=== PATIENT | female | born 1980 | race Caucasian/White ===

== ENCOUNTER 2017-08-23 18:58 | Inpatient (IN) ==
[2017-08-23] MEDS ORDERED: Haloperidol Inj 5 MG/ML Ampul ONE (19:11)
[2017-08-23] MEDS ORDERED: Haloperidol Inj 5 MG/ML Ampul IM ONE (19:20)
--- NOTE | 2017-08-23 21:03 | ED ---
HPI General Chief Complaint: Psychiatric Symptoms Stated Complaint: Eval/BA/DBPD Time Seen by Provider: 08/23/17 19:20 Source: patient Mode of arrival: other (BLAKE) Limitations: no limitations History of Present Illness HPI Narrative: 36-year-old female presents the ED under Ferro act for psychiatric evaluation. On my arrival to the room the patient is screaming help at the top of her lungs. She occasionally answers questions appropriately. She is unable to recall the events of today that led her to the ED. She denies suicidal ideation. I suspect that the patient is under the influence, however she denies any illicit drug use or alcohol use today. The patient is paranoid, states that we are "rubbing something on her skin that is absorbing." She is combative and in shackles and handcuffs. She is unable to provide any other meaningful history. Related Data Home Medications Medication Instructions Recorded Confirmed No Known Home Medications 08/21/17 08/21/17 Allergies Allergy/AdvReac Type Severity Reaction Status Date / Time *MDRO Multi-Drug Resistant AdvReac Unknown Uncoded 09/03/16 11:58 Organism Review of Systems ROS Unobtainable unobtainable due to mental status PMFSH Medical History Medical History Medical history unknown (Acute) Surgical History Surgical History No history of previous surgery (Acute) Social History Social History Substance History: Active Abuse Smoking Status: Current every day smoker Tobacco Type: Cigarettes How Often Do You Have a Drink Containing Alcohol: 4 or more times a week Exam Narrative Exam Narrative: GENERAL: Well-nourished, well-developed white female in no acute distress. SKIN: Focused skin assessment warm/dry. Multiple tattoos noted. HEAD: Normocephalic. EYES: No scleral icterus. No injection or drainage. NECK: Supple, trachea midline. No JVD or lymphadenopathy. CARDIOVASCULAR: Regular rate and rhythm without murmurs, gallops, or rubs. RESPIRATORY: Breath sounds clear and equal bilaterally. No accessory muscle use. GASTROINTESTINAL: Abdomen soft, non-tender, nondistended. MUSCULOSKELETAL: No cyanosis, or edema. Walks with a normal gait. BACK: Nontender without obvious deformity. No CVA tenderness. Medical Decision Making MDM Narrative Medical decision making narrative: 36-year-old female presents the ED under Ferro act for psychiatric evaluation. The patient is combative and defiant and paranoid. She is unable to provide any meaningful information. Patient was administered 5 mg of Haldol and 2 mg Ativan IM. Patient has a potassium level 2.9. I reviewed her record, this is chronic. She was administered 40 mEq KCl p.o. Patient's medically cleared for psychiatric evaluation. Differential Diagnosis Differential Diagnosis: Adjustment disorder versus anxiety versus bipolar versus depression versus dementia versus electrolyte disorder versus malingering versus mood disorder versus ODD versus psychosis versus PTSD versus schizophrenia versus schizoaffective disorder versus substance-induced mood disorder versus other Lab Data Result diagrams: 08/23/17 23:45 08/23/17 23:45 Lab Results 08/23/17 08/23/17 Range/Units 23:45 23:45 WBC 9.6 (4.0-11.0) th/mm3 RBC 4.74 (4.00-5.30) mil/mm3 Hgb 13.4 (11.6-15.3) gm/dL Hct 38.8 (35.0-46.0) % MCV 81.7 (80.0-100.0) fL MCH 28.2 (27.0-34.0) pg MCHC 34.5 (32.0-36.0) % RDW 13.6 (11.6-17.2) % Plt Count 227 (150-450) th/mm3 MPV 8.0 (7.0-11.0) fL Neut % (Auto) 65.7 (16.0-70.0) % Lymph % (Auto) 24.7 (9.0-44.0) % [place] % (Auto) 8.6 H (0.0-8.0) % Eos % (Auto) 0.4 (0.0-4.0) % Baso % (Auto) 0.6 (0.0-2.0) % Neut # (Auto) 6.3 (1.8-7.7) th/mm3 Lymph # (Auto) 2.4 (1.0-4.8) th/mm3 [place] # (Auto) 0.8 (0.0-0.9) th/mm3 Eos # (Auto) 0.0 (0.0-0.4) th/mm3 Baso # (Auto) 0.1 (0.0-0.2) th/mm3 WBC Differential . Differential Comment Auto diff final Sodium 141 (136-145) meq/L Potassium 2.9 L* (3.5-5.1) meq/L Chloride 107 (98-107) meq/L Carbon Dioxide 22.9 (21.0-32.0) meq/L Anion Gap 11 (5-15) meq/L BUN 13 (7-18) mg/dL Creatinine 0.70 (0.50-1.00) mg/dL Estimated GFR Greater than 89 (>89) mL/min Random Glucose 87 (74-106) mg/dL Calcium 8.6 (8.5-10.1) mg/dL Total Bilirubin 0.6 (0.2-1.0) mg/dL AST 23 (15-37) U/L ALT 22 (10-53) U/L Alkaline Phosphatase 45 (45-117) U/L Total Protein 7.5 (6.4-8.2) g/dL Albumin 3.6 (3.4-5.0) g/dL TSH 2.240 (0.358-3.740) uIU/mL Serum Alcohol Less than 3 (0-5) mg/dL Discharge Plan Discharge Disposition Patient Disposition: 30 Still Patient Discharge Details Discharge Problem: Medical clearance for psychiatric admission, Chronic hypokalemia Physicians Team ED Provider: Filipe Trujillo ED Midlevel Provider: Nanci Santos Primary Care Provider: UNKNOWN, Rxs /Orders / Referrals /Forms Prescriptions: No Action No Known Home Medications RF: 0 Status ED Status: Medically Cleared
[2017-08-24] LABS: Baso # (Auto) 0.1 th/mm3 (0.0-0.2); Baso % (Auto) 0.6 % (0.0-2.0); Eos % (Auto) 0.4 % (0.0-4.0); Hematocrit 38.8 % (35.0-46.0); Hemoglobin 13.4 gm/dL (11.6-15.3); Lymph # (Auto) 2.4 th/mm3 (1.0-4.8); Lymph % (Auto) 24.7 % (9.0-44.0); Mean Corpuscular HGB Conc 34.5 % (32.0-36.0); Mean Corpuscular Hemoglobin 28.2 pg (27.0-34.0); Mean Corpuscular Volume 81.7 fL (80.0-100.0); Mono # (Auto) 0.8 th/mm3 (0.0-0.9); Mono % (Auto) 8.6 % (0.0-8.0); Neut # (Auto) 6.3 th/mm3 (1.8-7.7); Neut % (Auto) 65.7 % (16.0-70.0); Platelet Count 227 th/mm3 (150-450); Red Blood Count 4.74 mil/mm3 (4.00-5.30); Red Cell Distribution Width 13.6 % (11.6-17.2); White Blood Count 9.6 th/mm3 (4.0-11.0)
[2017-08-24 00:30] LABS: Alanine Aminotransferase 22 U/L (10-53); Albumin 3.6 g/dL (3.4-5.0); Alkaline Phosphatase 45 U/L (45-117); Anion Gap 11 meq/L (5-15); Aspartate Aminotransferase 23 U/L (15-37); Blood Urea Nitrogen 13 mg/dL (7-18); Calcium 8.6 mg/dL (8.5-10.1); Carbon Dioxide 22.9 meq/L (21.0-32.0); Chloride 107 meq/L (98-107); Glomerular Filtration Rate Greater Than 89 mL/min (>89); Glucose,Random 87 mg/dL (74-106); Sodium 141 meq/L (136-145); Total Protein 7.5 g/dL (6.4-8.2)
[2017-08-24 00:32] LABS: Potassium 2.9 meq/L (3.5-5.1)
--- NOTE | 2017-08-24 16:01 | P.CONPSY ---
Provisional Diagnosis Admission Date: August 23, 2017 18:58 [place] I.: Substance-induced psychosis, polysubstance dependence including amphetamines, cocaine, opiates, cannabis History of Present Illness Service: ER Primary Care Provider: UNKNOWN History of Present Illness: The patient was seen this morning at 9:30 AM The patient is a 36-year-old woman, single, unemployed, homeless, with psychiatric history of polysubstance dependence including cannabis, cocaine , amphetamines, opiates, poor impulse control, aggressive behavior, extensive history of self cutting behavior, known by the service, no significant medical history, presents the ED under Ferro act for psychiatric evaluation. On my arrival to the room the patient is screaming help at the top of her lungs. She occasionally answers questions appropriately. She is unable to recall the events of today that led her to the ED. She denies suicidal ideation. I suspect that the patient is under the influence, however she denies any illicit drug use or alcohol use today. The patient is paranoid, states that we are "rubbing something on her skin that is absorbing." She is combative and in shackles and handcuffs. She is unable to provide any other meaningful history. Documentation was reviewed. Case discussed with ER staff. The patient was initially medicated with Haldol 5 mg, Ativan 2 mg IM in order to calm her down. On the psychiatric evaluation today the patient seems to be a little bit sedated, poorly cooperative, but she says that she prefers not to talk. She says that she is not being helped in this hospital and she just wanted to be discharged to go to use drugs again. When I asked her about suicidal ideation, the patient says that she prefers not to answer that question. Review of Systems Cardiovascular: Denies chest pain, Denies chest pain at rest, Denies chest pain with activity, Denies excessive sweating, Denies fainting, Denies fast heart rate, Denies foot swelling, Denies generalized swelling, Denies irregular heart rhythm, Denies leg pain with activity, Denies leg sores, Denies leg swelling, Denies lightheadedness, Denies radiating jaw, neck or arm pain, Denies rapid, pounding, or irregular heartbeat, Denies shortness of breath, Denies shortness of breath with activity, Denies shortness of breath when lying down, Denies shortness of breath causing sudden awakening, Denies slow heart rate, Denies other Gastrointestinal: Denies abdominal pain, Denies belching, Denies black, tarry stools, Denies bloating, Denies bright, red blood in stools, Denies change in bowel habits, Denies constant urge to pass stool, Denies change in stools, Denies coffee ground vomit, Denies constipation, Denies cramping, Denies difficulty swallowing, Denies excessive passing of gas, Denies feeling full early, Denies heartburn, Denies incontinent of stools, Denies loose stools, Denies nausea, Denies pain with swallowing, Denies vomiting, Denies vomiting blood, Denies other Genitourinary: Denies abnormal periods, Denies abnormal vaginal bleeding, Denies absent period, Denies bleeding between periods, Denies blood in urine, Denies difficulty starting urination, Denies difficulty urinating, Denies dribbling after urination, Denies frequent nighttime urination, Denies genital itching, Denies genital lesions, Denies heavy periods, Denies hot flashes, Denies light periods, Denies nipple discharge, Denies painful intercourse, Denies painful periods, Denies painful urination, Denies pelvic pain, Denies prolapse symptoms, Denies sexual problems, Denies side pain, Denies urinary incontinence, Denies urinary urgency, Denies vaginal discharge, Denies vaginal dryness, Denies vaginal odor, Denies vaginal itching, Denies other Skin/Breast: Denies acne, Denies bleeding lesions, Denies boil, Denies breast swelling, Denies breast skin changes, Denies breast pain, Denies breast lump, Denies change in breast shape, Denies change in hair, Denies change in skin color, Denies changing lesions, Denies dry skin, Denies excessive hair growth, Denies hair loss, Denies itching, Denies lesions, Denies nail changes, Denies new lesions, Denies nipple discharge, Denies non-healing lesions, Denies redness , Denies sensitivity to light, Denies rash, Denies skin pain, Denies skin ulcer , Denies sores, Denies stretch chambers, Denies unusual bruising, Denies wounds, Denies yellowing of the skin, Denies other Neurologic: Denies abnormal hearing, Denies abnormal movements, Denies abnormal speech, Denies abnormal walking, Denies behavioral changes, Denies burning sensations, Denies confusion, Denies dizziness, Denies fainting, Denies frequent falls, Denies headache(s), Denies lack of coordination, Denies localized weakness, Denies loss of vision, Denies memory loss, Denies numbness, Denies other visual disturbances, Denies radiating pain, Denies restless legs, Denies convulsions, Denies seizure-like activity, Denies sensory deficit, Denies tingling, Denies tingling/numbness/burning sensations, Denies tremor(s), Denies unsteadiness, Denies weakness, Denies other Psychiatric: Reports irritability, Denies abnormal sleep pattern, Denies anxiety , Denies behavioral changes, Denies change in appetite, Denies change in sex drive, Denies confusion, Denies depression, Denies difficulty concentrating, Denies hearing things others do not hear, Denies hopelessness, Denies lack of enjoyment, Denies memory loss, Denies mood swings, Denies panic attacks, Denies paranoia, Denies seeing things others do not see, Denies sensing things others do not sense, Denies tactile hallucinations, Denies thoughts of hurting/killing others, Denies thoughts of hurting/killing yourself, Denies other PMFSH - History History Provided By: Patient - Medical History Medical History: Medical History (Last Updated 08/21/17 @ 19:25 by Trinidad Carlos) Medical history unknown - Surgical History Surgical History: Surgical History (Last Updated 08/21/17 @ 19:25 by Trinidad Carlos) No history of previous surgery - Tobacco History Smoking Status: Current every day smoker Tobacco Type: Cigarettes - Alcohol History How Often Do You Have a Drink Containing Alcohol: 4 or more times a week - Substance Use History Substance History: Active Abuse - Substance Use Type Amphetamines Status: Active Route Used: By Mouth, Inhalation, Intravenously Reason for Use: Get High Medications and Allergies Active Medications: Active Medications Trimethoprim/Sulfamethoxazole (Bactrim Ds) 1 tab PO Q12HR OTILIA Allergies Allergy/AdvReac Type Severity Reaction Status Date / Time *MDRO Multi-Drug Resistant AdvReac Unknown Uncoded 09/03/16 11:58 Organism Mental Status Examination Appearance: Dirty, Disheveled, Other (Multiple tattoos) Orientation: x4 Motor Activity: Normal gait Speech: Slow, Incoherent Language: Adequate Fund of Knowledge: Adequate Attention and Concentration: Adequate Memory: Unremarkable Mood: Angry, Oppositional Thought Content: Appropriate Hallucination Type: None Delusion Type: None Suicidal Ideation: Yes Suicidal Plan: No Suicidal Intention: No Homicidal Ideation: No Homicidal Plan: No Homicidal Intention: No Insight: Poor Judgment: Poor Assessment and Plan - Assessment (1) Polysubstance dependence Code(s): F19.20 - Other psychoactive substance dependence, uncomplicated Status: Acute - Plan Plan: Estimated LOS: [] days On Psychiatric evaluation today the patient is quite irritable, oppositional, refusing to provide information for the psychiatric assessment, ambivalent about suicidal ideation. There is a patient with a extensive history of polysubstance dependence, poor impulse control, self cutting behavior, suicidal attempts, well known by the system. Patient is unable to contract for safety, and she has an elevated risk of danger to self, I will keep the patient on the Ferro act and was transferred the patient to [facility] for treatment of drug abuse and potential depression. Will order CIWA, also clonidine 0.2 mg every 8 hours as needed autonomic instability. Brief supportive psychotherapy provided. To be transferred to [facility]. Justification for Continued Inpatient Stay: Patient will be admitted in [facility].
[2017-08-25] MEDS ORDERED: Bisacodyl 10 MG Supp RECTAL PRN (08:33)
[2017-08-25] MEDS ORDERED: Aluminum/Magnesium/Simethacone Susp 30 ML UDC PO PRN (08:33)
--- NOTE | 2017-08-25 13:52 | P.HPPSY ---
Provisional Diagnosis Admission Date: August 25, 2017 08:35 [place] I.: Substance-induced psychosis, polysubstance dependence including amphetamines, cocaine, opiates, cannabis [place] II.: Unspecified personality disorder, strong cluster B traits Competence Certification of Person's Competence To Provide Express and Informed Consent I have personally examined Radha Murillo, a person being served at [facility] on, August 25, 2017 1347. Express and informed consent means consent voluntarily given in writing, by a competent person, after sufficient explanation and disclosure of the subject matter involved to enable the person to make a knowing and willful decision without any element of force, fraud, deceit, duress, or other form of constraint or coercion. This person is 18 years of age or older, is not now known to be incompetent to consent to treatment with a guardian advocate, and does not have a health care surrogate or proxy currently making medical treatment decisions. I have found this person to be one of the following: [] Competent to provide express and informed consent, as defined above, for voluntary admission to this facility and is competent to provide express and informed consent for treatment. He/she has the consistent capacity to make well reasoned, willful, and knowing decisions concerning his or her medical or mental health treatment. The person fully and consistently understands the purpose of the admission for examination/placement and is fully capable of personally exercising all rights assured [place] Incompetent to provide express and informed consent to voluntary admission, and this is incompetent to provide express and informed consent to treatment. The person must be transferred to involuntary status and a petition for a guardian advocate filed with the Circuit Court. [x] Refusing to provide express and informed consent to voluntary admission but is competent to provide express and informed consent for treatment. The person must be discharged or transferred to involuntary status. Form shall be completed within 24 hours of a person's arrival at the receiving facility and filed in the clinical record of each person: 1. Admitted on a voluntary basis 2. Permitted to provide express and informed consent to his/her own treatment 3. Allowed to transfer from involuntary to voluntary status 4. Prior to permitting a person to consent to his or her own treatment after having been previously found incompetent to consent to treatment. History of Present Illness Capacity: Has capacity History of Present Illness: 08/24/2017 The patient is a 36-year-old woman, single, unemployed, homeless, with psychiatric history of polysubstance dependence including cannabis, cocaine, amphetamines, opiates, poor impulse control, aggressive behavior, extensive history of self cutting behavior, known by the service, no significant medical history, presents the ED under Ferro act for psychiatric evaluation. On my arrival to the room the patient is screaming help at the top of her lungs. She occasionally answers questions appropriately. She is unable to recall the events of today that led her to the ED. She denies suicidal ideation. I suspect that the patient is under the influence, however she denies any illicit drug use or alcohol use today. The patient is paranoid, states that we are "rubbing something on her skin that is absorbing." She is combative and in shackles and handcuffs. She is unable to provide any other meaningful history. Documentation was reviewed. Case discussed with ER staff. The patient was initially medicated with Haldol 5 mg, Ativan 2 mg IM in order to calm her down. On the psychiatric evaluation today the patient seems to be a little bit sedated, poorly cooperative, but she says that she prefers not to talk. She says that she is not being helped in this hospital and she just wanted to be discharged to go to use drugs again. When I asked her about suicidal ideation, the patient says that she prefers not to answer that question. 08/24/2017 On Psychiatric evaluation today the patient is quite irritable, oppositional, refusing to provide information for the psychiatric assessment, ambivalent about suicidal ideation. There is a patient with a extensive history of polysubstance dependence, poor impulse control, self-cutting behavior , suicidal attempts, well known by the system. Patient is unable to contract for safety, and she has an elevated risk of danger to self, I will keep the patient on the Ferro act and was transferred the patient to [facility] for treatment of drug abuse and potential depression. Will order CIWA, also clonidine 0.2 mg every 8 hours as needed autonomic instability. Brief supportive psychotherapy provided. To be transferred to [facility]. 08/25/2017 the patient was seen today for psychiatric reevaluation. The patient continues to be quite irritable, very oppositional, and stating that she wants to . In longitudinal observation the patient has been isolated, barely getting out of her room, poorly communicative and internally preoccupied - Inpatient Certification I certify that the inpatient services were ordered in accordance with Medicare regulations governing the order. This includes certification that hospital inpatient services are reasonable and necessary and in the case of services not specified as inpatient-only under 42 CFR 419.22(n), that they are appropriately provided as inpatient services in accordance to with the 2-midnight benchmark under 43 CFR 412.3(e) I certify that inpatient psychiatric hospital services are medically necessary. Evaluation and treatment and/or diagnostic testing are expected to improve the patient's condition. The patient needs on a daily basis, active treatment furnished directly by or requiring the supervision of inpatient psychiatric facility personnel. Estimated Total Length of Stay (Days): 5 Plans for Post Hospital Care: Home Review of Systems Constitutional: Denies anorexia, Denies body ache(s), Denies chills, Denies daytime sleepiness, Denies excessive sweating, Denies fatigue, Denies fever(s), Denies headache(s), Denies increased appetite, Denies lack of energy, Denies malaise, Denies night sweats, Denies weakness, Denies weight gain, Denies weight loss, Denies other Cardiovascular: Denies chest pain, Denies chest pain at rest, Denies chest pain with activity, Denies excessive sweating, Denies fainting, Denies fast heart rate, Denies foot swelling, Denies generalized swelling, Denies irregular heart rhythm, Denies leg pain with activity, Denies leg sores, Denies leg swelling, Denies lightheadedness, Denies radiating jaw, neck or arm pain, Denies rapid, pounding, or irregular heartbeat, Denies shortness of breath, Denies shortness of breath with activity, Denies shortness of breath when lying down, Denies shortness of breath causing sudden awakening, Denies slow heart rate, Denies other Respiratory: Denies change in phlegm color, Denies chest congestion, Denies cough, Denies coughing up blood, Denies excessive phlegm production, Denies pain on inspiration, Denies pain with cough, Denies shortness of breath, Denies shortness of breath with activity, Denies snoring, Denies stridor, Denies wheezing, Denies other Gastrointestinal: Denies abdominal pain, Denies belching, Denies black, tarry stools, Denies bloating, Denies bright, red blood in stools, Denies change in bowel habits, Denies constant urge to pass stool, Denies change in stools, Denies coffee ground vomit, Denies constipation, Denies cramping, Denies difficulty swallowing, Denies excessive passing of gas, Denies feeling full early, Denies heartburn, Denies incontinent of stools, Denies loose stools, Denies nausea, Denies pain with swallowing, Denies vomiting, Denies vomiting blood, Denies other Genitourinary: Denies abnormal periods, Denies abnormal vaginal bleeding, Denies absent period, Denies bleeding between periods, Denies blood in urine, Denies difficulty starting urination, Denies difficulty urinating, Denies dribbling after urination, Denies frequent nighttime urination, Denies genital itching, Denies genital lesions, Denies heavy periods, Denies hot flashes, Denies light periods, Denies nipple discharge, Denies painful intercourse, Denies painful periods, Denies painful urination, Denies pelvic pain, Denies prolapse symptoms, Denies sexual problems, Denies side pain, Denies urinary incontinence, Denies urinary urgency, Denies vaginal discharge, Denies vaginal dryness, Denies vaginal odor, Denies vaginal itching, Denies other Musculoskeletal: Denies abnormal walking, Denies back pain, Denies body aches, Denies decreased muscle mass, Denies deformity, Denies joint pain, Denies joint swelling, Denies limited joint movement, Denies loss of height, Denies muscle cramps, Denies muscle weakness, Denies neck pain, Denies numbness, Denies radiating pain into limb, Denies stiffness, Denies tingling, Denies other Psychiatric: Reports behavioral changes, Reports thoughts of hurting/killing yourself, Denies abnormal sleep pattern, Denies anxiety, Denies change in appetite, Denies change in sex drive, Denies confusion, Denies depression, Denies difficulty concentrating, Denies hearing things others do not hear, Denies hopelessness, Denies irritability, Denies lack of enjoyment, Denies memory loss, Denies mood swings, Denies panic attacks, Denies paranoia, Denies seeing things others do not see, Denies sensing things others do not sense, Denies tactile hallucinations, Denies thoughts of hurting/killing others, Denies other PMFSH - History History Provided By: Patient - Medical History Medical History: Medical History (Last Updated 08/21/17 @ 19:25 by Trinidad Carlos) Medical history unknown - Surgical History Surgical History: Surgical History (Last Updated 08/21/17 @ 19:25 by Trinidad Carlos) No history of previous surgery - Tobacco History Smoking Status: Current every day smoker Tobacco Type: Cigarettes - Alcohol History How Often Do You Have a Drink Containing Alcohol: 4 or more times a week - Substance Use History Substance History: Active Abuse - Substance Use Type Amphetamines Status: Active Route Used: By Mouth, Inhalation, Intravenously Reason for Use: Get High Medications and Allergies Active Medications: Active Medications Al Hydrox/Mg Hydrox/Simethicone (Mag-Al Plus Susp Liq) 30 ml PO Q6H PRN PRN Reason: DYSPEPSIA Al Hydroxide/Mg Hydroxide (Milk Of Magnesia Liq) 30 ml PO Q12H PRN PRN Reason: Mild Constipation Bisacodyl (Dulcolax Supp) 10 mg RECTAL DAILY PRN PRN Reason: SEVERE CONSITIPATION Lactulose (Lactulose Liq) 30 ml PO DAILY PRN PRN Reason: SEVERE CONSITIPATION Senna/Docusate Sodium (Annika-Colace) 1 tab PO BID [facility] Sennosides (Senokot) 17.2 mg PO Q12H PRN PRN Reason: Moderate Constipation Trimethoprim/Sulfamethoxazole (Bactrim Ds) 1 tab PO Q12HR [facility] Allergies Allergy/AdvReac Type Severity Reaction Status Date / Time *MDRO Multi-Drug Resistant AdvReac Unknown Uncoded 09/03/16 11:58 Organism Results - Labs CBC & Chem 7: 08/23/17 23:45 08/23/17 23:45 Exam Vital signs: Vital Signs 08/24/17 18:00 08/24/17 23:04 08/25/17 06:39 Pulse Rate 80 74 Respiratory Rate 16 18 Blood Pressure 123/72 99/93 H Pulse Oximetry 98 99 Narrative: No withdrawal symptoms, no EPS, no psychomotor agitation retardation, no gait disturbance Mental Status Examination Appearance: Dirty, Disheveled, Other (Multiple tattoos) Orientation: x4 Motor Activity: Normal gait Speech: Slow, Incoherent Language: Adequate Fund of Knowledge: Adequate Attention and Concentration: Adequate Memory: Unremarkable Mood: Angry, Oppositional Thought Content: Appropriate Hallucination Type: None Delusion Type: None Suicidal Ideation: Yes Suicidal Plan: No Suicidal Intention: No Homicidal Ideation: No Homicidal Plan: No Homicidal Intention: No Insight: Poor Judgment: Poor Assessment and Plan - Assessment (1) Polysubstance dependence Code(s): F19.20 - Other psychoactive substance dependence, uncomplicated Status: Acute - Plan Plan: Estimated LOS: [] days On Psychiatric reevaluation today after 24 hours ready in the ER the patient continues to be irritable, oppositional, refusing to provide much information for the psychiatric assessment, seems to be guarded and internally preoccupied, ambivalent about suicidal ideation. There is a patient with a extensive history of polysubstance dependence, poor impulse control, self cutting behavior , suicidal attempts, well known by the system. Patient is unable to contract for safety, and she has an elevated risk of danger to self. She was in the [facility] list, but unfortunately has not been accepted, she needs to be admitted in psychiatry for safety and stabilization. Will order CIWA, also clonidine 0.2 mg every 8 hours as needed autonomic instability. We will start Seroquel 25 mg twice daily. Brief supportive psychotherapy provided. To be transferred to 2700 unit. Justification for Continued Inpatient Stay: Needs psychiatric admission
[2017-08-25] MEDS: Senna/Docusate Sodium 8.6/50 MG Tablet PO SCH ×2 (15:07→21:22)
[2017-08-25] MEDS ORDERED: QUEtiapine 100 MG Tablet PO ONE ×2 (21:15)
[2017-08-26] MEDS: Senna/Docusate Sodium 8.6/50 MG Tablet PO SCH ×2 (09:33→20:44)
--- NOTE | 2017-08-26 16:56 | P.CONPSY ---
Provisional Diagnosis Admission Date: August 25, 2017 08:35 [place] I.: Substance-induced psychosis, polysubstance dependence including amphetamines, cocaine, opiates, cannabis [place] II.: Unspecified personality disorder, strong cluster B traits History of Present Illness Service: Psychiatry Consult date: 08/26/17 Requesting Physician: Ignacio Duran Reason for Consult: Second opinion Primary Care Provider: UNKNOWN History of Present Illness: he patient is a 36-year-old woman, single, unemployed, homeless, with psychiatric history of polysubstance dependence including cannabis, cocaine, amphetamines, opiates, poor impulse control, aggressive behavior, extensive history of self cutting behavior, known by the service, no significant medical history, presents the ED under Ferro act for psychiatric evaluation. As per chart patient had required ETO due to agitation and paranoia in the ED and was given Haldol 5 mg IM and Ativan 2 mg IM 1. Discussion nursing staff reported the patient has been superficially cooperative, irritable. Patient was found lying hospital bed superficially cooperative with poor eye contact and interviewed with nursing counselors. Patient states that her problem is being here in the hospital, that her stressors primarily revolve around her drug use and homelessness patient denies any difficulty with sleep appetite energy or concentration, denying feeling depressed although her affect appeared to be irritable. Patient denies any perceptual service of delusions with denying any although noted to be paranoid during interview. Patient denies any history of suicide attempt or self-injurious behavior but with limited elaboration on previous hospitalizations diagnoses or treatments. Patient mentions that she is on probation for possession of a firearm charge and will continue to be on probation until October of this year. Patient denies any medical history or allergies to medications. Patient is a poor historian due to reluctance to engage in adequate interview as well as unreliable to contract for safety at this time. [facility] - History History Provided By: Patient - Medical History Medical History: Medical History (Last Updated 08/21/17 @ 19:25 by Trinidad Carlos) Medical history unknown - Surgical History Surgical History: Surgical History (Last Updated 08/21/17 @ 19:25 by Trinidad Carlos) No history of previous surgery - Tobacco History Second Hand Smoke Exposure: Yes Smoking Status: Refused to answer Tobacco Type: Cigarettes - Alcohol History How Often Do You Have a Drink Containing Alcohol: 4 or more times a week - Substance Use History Substance History: Active Abuse - Substance Use Type Amphetamines Status: Active Route Used: By Mouth Reason for Use: Calm Down, Feels Good Comment: Patient reports that she is addicted to "drugs" but would not elaborate. Patient denies any history of treatment for alcohol or substance abuse. - Travel History Recent Travel in the [place] Within the Last 8 Weeks: No Recent Travel Out of the Country Within the Last 8 Weeks: No - Immunization History Tetanus Immunization: >5 Years Hx Influenza Vaccine This Season: No Medications and Allergies Active Medications: Active Medications Al Hydrox/Mg Hydrox/Simethicone (Mag-Al Plus Susp Liq) 30 ml PO Q6H PRN PRN Reason: DYSPEPSIA Al Hydroxide/Mg Hydroxide (Milk Of Magnesia Liq) 30 ml PO Q12H PRN PRN Reason: Mild Constipation Bisacodyl (Dulcolax Supp) 10 mg RECTAL DAILY PRN PRN Reason: SEVERE CONSITIPATION Lactulose (Lactulose Liq) 30 ml PO DAILY PRN PRN Reason: SEVERE CONSITIPATION Senna/Docusate Sodium (Annika-Colace) 1 tab PO BID [facility] Last Admin: 08/26/17 09:33 Dose: 1 tab Sennosides (Senokot) 17.2 mg PO Q12H PRN PRN Reason: Moderate Constipation Trimethoprim/Sulfamethoxazole (Bactrim Ds) 1 tab PO Q12HR [facility] Last Admin: 08/26/17 09:33 Dose: 1 tab Allergies Allergy/AdvReac Type Severity Reaction Status Date / Time *MDRO Multi-Drug Resistant AdvReac Unknown Uncoded 09/03/16 11:58 Organism Exam Vital signs: Vital Signs 08/26/17 05:56 08/26/17 15:56 Temperature 98.4 F 102.6 F H Pulse Rate 86 96 H Respiratory Rate 16 18 Blood Pressure 102/61 113/71 Pulse Oximetry 98 97 Intake & Output 08/25/17 08/26/17 08/26/17 18:59 06:59 18:59 Weight 65.6 kg Other: Weight On Admission 65.6 kg Mental Status Examination Appearance: Dirty, Disheveled, Other (Multiple tattoos) Consciousness: Alert Orientation: x4 Motor Activity: Normal gait Speech: Slow, Incoherent Language: Adequate Fund of Knowledge: Adequate Attention and Concentration: Adequate Memory: Unremarkable Mood: Oppositional, Irritable Affect: Other (Guarded) Thought Process & Associations: Linear Thought Content: Appropriate Hallucination Type: None Delusion Type: None, Paranoid Suicidal Ideation: Yes (Denies been unreliable to contract for safety) Suicidal Plan: No Suicidal Intention: No Homicidal Ideation: No Homicidal Plan: No Homicidal Intention: No Insight: Poor Judgment: Poor Assessment and Plan - Assessment (1) Polysubstance dependence Code(s): F19.20 - Other psychoactive substance dependence, uncomplicated Status: Acute - Plan Plan: I have seen and examined this patient, reviewed the documentation, discussed personally with Dr. Duran, and I agree and concur with his assessment and plan. Consult appreciated. Justification for Continued Inpatient Stay: At risk of further decompensation a lower level care. Discharge Planning: To be determined
[2017-08-26] MEDS: LORazepam 1 MG Tablet PO PRN (20:44)
[2017-08-26] MEDS ORDERED: QUEtiapine 100 MG Tablet PO SCH (21:00)
[2017-08-27] MEDS: LORazepam 1 MG Tablet PO PRN ×3 (08:45→21:51)
[2017-08-27] MEDS: Ibuprofen 600 MG Tablet PO PRN ×2 (08:45→20:30)
[2017-08-27] MEDS: Senna/Docusate Sodium 8.6/50 MG Tablet PO SCH ×2 (08:46→20:28)
[2017-08-27 11:46] LABS: Calcium 8.7 mg/dL (8.5-10.1); Carbon Dioxide 24.1 meq/L (21.0-32.0); Potassium 3.5 meq/L (3.5-5.1)
[2017-08-27 11:51] LABS: Chol/HDL Ratio 2.44 Ratio; HDL Cholesterol 40.1 mg/dL (40.0-60.0)
--- NOTE | 2017-08-27 16:50 | P.PNPSY ---
Subjective Remarks: She is seen for follow-up, chart reviewed. Discussion nursing staff reported the patient noted to be somewhat irritable and angry this morning, continues on treatment for UTI. Patient was found lying hospital bed noted to be superficially cooperative, somnolent and minimally engaging interview today. Patient states that she is feeling "okay" with any of elaborate about feeling depressed nor whether she was continuing to having suicidal ideations. Patient was encouraged to maintain adequate fluid intake and to maintain adherence to treatment which she can simply nodded her head continue to close her eyes and refused to continue interview. Review of Systems All other systems reviewed negative except as stated in HPI Mental Status Examination Appearance: Appropriate, Other (Multiple tattoos) Consciousness: Alert Orientation: x4 Motor Activity: Normal gait Speech: Slow, Incoherent Language: Adequate Fund of Knowledge: Adequate Attention and Concentration: Adequate Memory: Unremarkable Mood: Other ("Tired") Affect: Other (Guarded) Thought Process & Associations: Linear Thought Content: Appropriate Hallucination Type: None Delusion Type: None, Paranoid Suicidal Ideation: Yes (Denies been unreliable to contract for safety) Suicidal Plan: No Suicidal Intention: No Homicidal Ideation: No Homicidal Plan: No Homicidal Intention: No Insight: Poor Judgment: Poor Assessment and Plan - Assessment (1) Polysubstance dependence Code(s): F19.20 - Other psychoactive substance dependence, uncomplicated Status: Acute - Plan Plan: Patient this time continues with limited cooperation during interview, irritability noted still. We will continue to titrate quetiapine for mood stabilization to 150 mg p.o. at bedtime, continue rest of medications. Continue to monitor mood and behavior. Discharge planning in progress. Justification for Continued Inpatient Stay: At risk for further decompensation if at lower level of care
[2017-08-27] MEDS ORDERED: QUEtiapine 100 MG Tablet PO SCH (21:00)
[2017-08-28] MEDS: LORazepam 1 MG Tablet PO PRN ×2 (10:11→15:39)
[2017-08-28] MEDS: Senna/Docusate Sodium 8.6/50 MG Tablet PO SCH ×2 (11:15→20:20)
--- NOTE | 2017-08-28 12:33 | P.PNPSY ---
Subjective Remarks: Patient seen for follow-up, chart reviewed. Discussion nursing staff reported the patient irritable and agitated this morning but redirectable along with feeling very paranoid with medications and refused labs today. Patient was found ambulating on the [place] noted to be somewhat disoriented but also irritable and labile. Patient asks why she is still in the hospital and noted be very tearful stated that she did not know what to do. Patient also mentions having foul-smelling her urine was reminded that she is currently being treated for UTI and encouraged to maintain adequate hydration. Patient preservative on discharge plan stating that she fears of going back out into the streets but is amenable to engaging in sober living facility for rehabilitation. Review of Systems All other systems reviewed negative except as stated in HPI Mental Status Examination Appearance: Appropriate, Other (Multiple tattoos) Consciousness: Alert Orientation: x4 Motor Activity: Normal gait Speech: Unremarkable Language: Adequate Fund of Knowledge: Adequate Attention and Concentration: Adequate Memory: Unremarkable Mood: Anxious, Irritable Affect: Labile, Other (Crying at times) Thought Process & Associations: Disorganized (At times), Linear Thought Content: Appropriate Hallucination Type: None Delusion Type: Paranoid Suicidal Ideation: Yes (Denies been unreliable to contract for safety) Suicidal Plan: No Suicidal Intention: No Homicidal Ideation: No Homicidal Plan: No Homicidal Intention: No Insight: Poor Judgment: Poor Assessment and Plan - Assessment (1) Polysubstance dependence Code(s): F19.20 - Other psychoactive substance dependence, uncomplicated Status: Acute - Plan Plan: Patient this time continues with labile mood, irritability. We will continue titration of quetiapine to 200 mg p.o. at bedtime, continue rest of medications and recommendations as per prior medical team. Continue to encourage patient to maintain adequate fluid intake and nutritional intake as well as participating groups and activities and maintain personal hygiene. Continue to monitor mood and behavior. Discharge planning a progress. Justification for Continued Inpatient Stay: At risk of further decompensation a lower level of care.
--- NOTE | 2017-08-29 08:27 | ECG ---
Date Performed: 08/28/2017 Time Performed: 13:14:31 PTAGE: 36 years EKG: Sinus rhythm NORMAL ECG PREVIOUS TRACING : 09/03/2016 14.35 DOCTOR: Miguel Angel Hernandez Interpretating Date/Time 08/29/2017 08:22:17
[2017-08-29] MEDS: Senna/Docusate Sodium 8.6/50 MG Tablet PO SCH ×2 (13:13→20:00)
--- NOTE | 2017-08-29 14:16 | P.PNPSY ---
Subjective Remarks: Patient was seen and case discussed with nursing. Per nursing, patient was tearful and paranoid last night. During this interview there is poverty of speech and some thought blocking. She is flat and hypoverbal. She appears confused with the interview in her surroundings. Insight is quite poor. Compliant with medications and no outbursts Mental Status Examination Appearance: Appropriate, Other (Multiple tattoos) Consciousness: Alert Orientation: x4 Motor Activity: Normal gait Speech: Unremarkable Language: Adequate Fund of Knowledge: Adequate Attention and Concentration: Adequate Memory: Unremarkable Mood: Anxious, Irritable Affect: Flat, Other (Crying at times) Thought Process & Associations: Disorganized (At times), Linear Thought Content: Thought blocking Hallucination Type: None Delusion Type: Paranoid Suicidal Ideation: Yes (Denies been unreliable to contract for safety) Suicidal Plan: No Suicidal Intention: No Homicidal Ideation: No Homicidal Plan: No Homicidal Intention: No Insight: Poor Judgment: Poor Assessment and Plan - Assessment (1) Polysubstance dependence Code(s): F19.20 - Other psychoactive substance dependence, uncomplicated Status: Acute - Plan Plan: Continue current treatment plan Justification for Continued Inpatient Stay: Patient would decompensate in a less restrictive setting
[2017-08-29] MEDS: LORazepam 1 MG Tablet PO PRN (17:49)
[2017-08-30] MEDS: Senna/Docusate Sodium 8.6/50 MG Tablet PO SCH ×2 (08:49→21:45)
[2017-08-30] MEDS: LORazepam 1 MG Tablet PO PRN (12:09)
[2017-08-30] MEDS ORDERED: Haloperidol Inj 5 MG/ML Ampul ONE (13:44)
[2017-08-30] MEDS ORDERED: Haloperidol Inj 5 MG/ML Ampul IM ONE (13:45)
--- NOTE | 2017-08-30 15:44 | P.PNPSY ---
Subjective Remarks: Patient was seen and case discussed with nursing. For this visit, patient is quite somnolent after her ETO of Haldol. Earlier in the day she was irritable and cursing at another patient and subsequently threw a chair. Mental Status Examination Appearance: Appropriate, Other (Multiple tattoos) Consciousness: Somnolent Orientation: x4 Motor Activity: Normal gait Speech: Unremarkable Language: Adequate Fund of Knowledge: Adequate Attention and Concentration: Adequate Memory: Unremarkable Mood: Anxious, Irritable Affect: Flat, Other (Crying at times) Thought Process & Associations: Disorganized (At times), Linear Thought Content: Thought blocking Hallucination Type: None Delusion Type: Paranoid Suicidal Ideation: Yes (Denies been unreliable to contract for safety) Suicidal Plan: No Suicidal Intention: No Homicidal Ideation: No Homicidal Plan: No Homicidal Intention: No Insight: Poor Judgment: Poor Assessment and Plan - Assessment (1) Polysubstance dependence Code(s): F19.20 - Other psychoactive substance dependence, uncomplicated Status: Acute - Plan Plan: Continue current treatment plan Justification for Continued Inpatient Stay: Patient would decompensate in a less restrictive setting
[2017-08-31] MEDS: LORazepam 1 MG Tablet PO PRN (11:11)
[2017-08-31] MEDS ORDERED: QUEtiapine 100 MG Tablet PO SCH (14:25)
--- NOTE | 2017-08-31 17:55 | P.PNPSY ---
Subjective Remarks: Patient seen for follow-up, chart reviewed. Discussion with nursing staff reported that the patient had labile mood over the weekend which she required ETO, continues to be anxious. Patient was found ambulating on the unit, noted to be anxious about discharge plan, noted with poverty of thought, and having difficulty with decision making as she is noted to be overwhelmed. Patient states that she would like referral to treatment program but then appears unsure. She states feeling confused at times. She denies any AVH, denies any SI or delusions. Review of Systems All other systems reviewed negative except as stated in HPI Mental Status Examination Appearance: Appropriate, Other (Multiple tattoos) Consciousness: Somnolent Orientation: x4 Motor Activity: Normal gait Speech: Unremarkable Language: Adequate Fund of Knowledge: Adequate Attention and Concentration: Adequate Memory: Unremarkable Mood: Anxious, Irritable Affect: Labile Thought Process & Associations: Disorganized (At times), Other (some poverty of thought) Thought Content: Thought blocking, Preoccupations (with discharge plan) Hallucination Type: None Delusion Type: Paranoid Suicidal Ideation: No Suicidal Plan: No Suicidal Intention: No Homicidal Ideation: No Homicidal Plan: No Homicidal Intention: No Insight: Poor Judgment: Poor Assessment and Plan - Assessment (1) Polysubstance dependence Code(s): F19.20 - Other psychoactive substance dependence, uncomplicated Status: Acute - Plan Plan: Patient continues with confusion at times, difficulty with organization of thoughts, and with labile mood but lessening. Will increase quetiapine to 250mg PO HS for mood stabilization. Will continue to monitor mood and behavior. Discharge planning in progress. Justification for Continued Inpatient Stay: At risk for further decompensation at lower level of care.
[2017-08-31] MEDS: Senna/Docusate Sodium 8.6/50 MG Tablet PO SCH (21:40)
[2017-09-01] MEDS: Senna/Docusate Sodium 8.6/50 MG Tablet PO SCH (08:38)
--- NOTE | 2017-09-01 08:41 | P.DSPSY ---
Psychiatry Discharge Summary Inpatient Psychiatric care?: Yes Advance Directives: Yes Mental Health Advance Directive: No Health Care Proxy: No - Admission Admission Date: August 25, 2017 08:35 - Admission Diagnosis (1) Substance induced mood disorder Code(s): F19.94 - Other psychoactive substance use, unspecified with psychoactive substance-induced mood disorder (2) Polysubstance dependence Code(s): F19.20 - Other psychoactive substance dependence, uncomplicated Brief History: 08/24/2017 The patient is a 36-year-old woman, single, unemployed, homeless, with psychiatric history of polysubstance dependence including cannabis, cocaine, amphetamines, opiates, poor impulse control, aggressive behavior, extensive history of self cutting behavior, known by the service, no significant medical history, presents the ED under [facility] act for psychiatric evaluation. On my arrival to the room the patient is screaming help at the top of her lungs. She occasionally answers questions appropriately. She is unable to recall the events of today that led her to the ED. She denies suicidal ideation. I suspect that the patient is under the influence, however she denies any illicit drug use or alcohol use today. The patient is paranoid, states that we are "rubbing something on her skin that is absorbing." She is combative and in shackles and handcuffs. She is unable to provide any other meaningful history. Documentation was reviewed. Case discussed with ER staff. The patient was initially medicated with Haldol 5 mg, Ativan 2 mg IM in order to calm her down. On the psychiatric evaluation today the patient seems to be a little bit sedated, poorly cooperative, but she says that she prefers not to talk. She says that she is not being helped in this hospital and she just wanted to be discharged to go to use drugs again. When I asked her about suicidal ideation, the patient says that she prefers not to answer that question. 08/24/2017 On Psychiatric evaluation today the patient is quite irritable, oppositional, refusing to provide information for the psychiatric assessment, ambivalent about suicidal ideation. There is a patient with a extensive history of polysubstance dependence, poor impulse control, self-cutting behavior , suicidal attempts, well known by the system. Patient is unable to contract for safety, and she has an elevated risk of danger to self, I will keep the patient on the Ferro act and was transferred the patient to [facility] for treatment of drug abuse and potential depression. Will order CIWA, also clonidine 0.2 mg every 8 hours as needed autonomic instability. Brief supportive psychotherapy provided. To be transferred to [facility]. 08/25/2017 the patient was seen today for psychiatric reevaluation. The patient continues to be quite irritable, very oppositional, and stating that she wants to . In longitudinal observation the patient has been isolated, barely getting out of her room, poorly communicative and internally preoccupied Tobacco Use In Past 30 Days: Yes How Often Do You Have a Drink Containing Alcohol: Monthly or less Hospital Course: Patient is a 36-year-old woman, single, unemployed, homeless, with psychiatric history of polysubstance dependence including cannabis, cocaine, amphetamines, opiates, poor impulse control, aggressive behavior, extensive history of self cutting behavior, known by the service, no significant medical history, presents the ED under act for psychiatric evaluation. which patient was admitted to the inpatient psychiatry unit for further evaluation and management. Patient was started on quetiapine and titrated up to 250mg PO HS, along with medications for UTI which she tolerated well with minimal side effects. Patient was admitted to a locked, inpatient psychiatric unit. Appropriate precautions were in place throughout patient's hospital stay. Patient was seen and examined on the unit by psychiatry. Psychotropic medications were adjusted. There was no evidence of any suicidality or homicidality on the inpatient unit. Patient's behavior improved with the benefit of psychopharmacologic treatment. Counselor has arranged for follow up appointments for continuity of care. On the day of discharge: Patient seen and examined; chart reviewed. Case discussed with nurse and counselor. No behavioral issues overnight. On my examination today, the patient is agreeable to a discharge to [facility] as she did not want to continue further psychiatric treatment despite recommendations for further stabilization but did not meet criteria for involuntary admission and requested discharge against medical advise. She denies any suicidal or homicidal ideation, intent or plan on direct questioning and contracts for safety. I can elicit no mood symptoms. She denies any audiovisual hallucinations. No delusional material verbalized today. She denies any side effects from medications. She has an understanding of her medication regimen and indication. Patient was counseled in importance of abstinence from substance use. No physical complaints. Suicide and violence risk assessment on day of discharge both suggest lower imminent risk, and the patient's level of function is adequate for planned level of outpatient care. Patient will be discharged with follow-up as arranged by counselor. Patient advised to return to psychiatric emergency room for any concerning psychiatric symptoms. Patient agrees with plan. - Discharge Discharge Date: 09/01/17 - Discharge Diagnosis (1) Polysubstance dependence Code(s): F19.20 - Other psychoactive substance dependence, uncomplicated Status: Acute (2) Substance induced mood disorder Code(s): F19.94 - Other psychoactive substance use, unspecified with psychoactive substance-induced mood disorder Status: Acute Discharge Disposition: Home - Discharge Instructions Discharge Diet: Heart Healthy Diet Activities You Can Perform: Regular- No Restrictions - Discharge Time > 30 minutes Mental Status Examination Appearance: Appropriate, Other (Multiple tattoos) Consciousness: Alert Orientation: x4 Motor Activity: Normal gait Speech: Unremarkable Language: Adequate Fund of Knowledge: Adequate Attention and Concentration: Adequate Memory: Unremarkable Mood: Anxious, Irritable Affect: Appropriate Thought Process & Associations: Intact, Linear Thought Content: Appropriate Hallucination Type: None Delusion Type: None Suicidal Ideation: No Suicidal Plan: No Suicidal Intention: No Homicidal Ideation: No Homicidal Plan: No Homicidal Intention: No Insight: Fair Judgment: Impulsive Discharge/Advance Care Plan - Results Vital Signs: Last Vital Signs Temp 97.4 F L 09/01/17 05:43 Pulse 67 09/01/17 05:43 Resp 17 09/01/17 05:43 BP 94/60 L 09/01/17 05:43 Pulse Ox 98 09/01/17 05:43 Lab Results: Laboratory Results Hemoglobin A1c 5.0 % (4.3-6.0) 08/27/17 10:05 Triglycerides 68 mg/dL (42-150) 08/27/17 10:05 Cholesterol 98 mg/dL (120-200) L 08/27/17 10:05 LDL Cholesterol, Calc 44 mg/dL (0-99) 08/27/17 10:05 HDL Cholesterol 40.1 mg/dL (40.0-60.0) 08/27/17 10:05 TSH 2.240 uIU/mL (0.358-3.740) 08/23/17 23:45 Summary of Procedures: none Pending Results: None - Medications Number of antipsychotic medications at discharge: 1 - Discharge Care Plan Goals to Promote Your Health: * To prevent worsening of your condition and complications * To maintain your health at the optimal level Directions to Meet Your Goals: Take your medications as prescribed Follow your dietary instruction Follow activity as directed Keep your appointments as scheduled Take your immunizations and boosters as scheduled If your symptoms worsen call your PCP, if no PCP go to Urgent Care Center or Emergency Room For 08/09 questions related to your inpatient stay or results of tests pending at discharge, please contact Dr. Reji Delong MD at Smoking is Dangerous to Your Health. Avoid second hand smoking
== END 2017-09-01 10:30 | disposition home or self-care (01) ==
LOC: NEPJ 18:58 → NEDA 08-25 08:35 → H270 08-25 15:30
PROVIDERS: ADMIT Student in an Organized Health Care Education/Training Program; ATTEND Student in an Organized Health Care Education/Training Program
DX: F11.250 Opioid dependence with opioid-induced psychotic disorder with delusions; F12.250 Cannabis dependence with psychotic disorder with delusions; F14.250 Cocaine dependence with cocaine-induced psychotic disorder with delusions; R45.86 Emotional lability; F60.89 Other specific personality disorders; Z91.5 Personal history of self-harm; F17.210 Nicotine dependence, cigarettes, uncomplicated; Z59.0 Homelessness; F15.250 Other stimulant dependence with stimulant-induced psychotic disorder with delusions; Z65.3 Problems related to other legal circumstances; N39.0 Urinary tract infection, site not specified